=== PATIENT | female | born 1985 | race Caucasian/White ===

== ENCOUNTER 2022-07-30 11:45 | Emergency (ER) | payer OTHER, MEDICAID, SELFPAY ==
[2022-07-30 12:09] VITALS: BP 140/101; PULSE 137; RESP 24; TEMP 36.9; O2SAT 99; BMI 21.4
[2022-07-30 12:41] LABS: Appearance Urine UA CLEAR; Bilirubin Urine UA NEGATIVE (NEGATIVE); Color Urine UA YELLOW; Glucose Urine UA NEGATIVE (Negative); Ketones Urine UA NEGATIVE (NEGATIVE); Leukocyte Esterase Urine UA NEGATIVE (NEGATIVE); Nitrite Urine UA NEGATIVE (Negative); Occult Blood Urine UA NEGATIVE (Negative); Protein Urine UA NEGATIVE (Negative); Specific Gravity Urine UA <=1.005 (1.000-1.035); Urobilinogen Urine UA 0.2 E.U./dL (0.2)
[2022-07-30 12:55] LABS: Bacteria Urine None Seen; Culture Indicated Urine Cult Not Indicated; RBC Urine 0-1/HPF (0-5/HPF); WBC Urine 0-1/HPF (0-5/HPF)
[2022-07-30 14:00] VITALS: BP 138/75; PULSE 97; RESP 18; O2SAT 100
[2022-07-30 16:02] LABS: Add Manual Diff / Slide Review NO; Basophils Absolute Auto 0 /uL (0-100); Basophils Percent Auto 0.2 % (0-2); Eosinophils Absolute Auto 0 /uL (0-450); Hematocrit 36.5 % (36-46); Hemoglobin 12.4 g/dL (12.0-16.0); Lymphocytes Absolute Auto 1000 /uL (1100-4500); Lymphocytes Percent Auto 7.4 % (25-40); Mean Corpuscular Hemoglobin 31.4 PG (26-34); Mean Corpuscular Volume 92.2 fL (80-100); Monocytes Absolute Auto 400 /uL (0-900); Monocytes Percent Auto 2.7 % (3-14); Neutrophils Absolute Auto 11900 /uL (1500-7000); Neutrophils Percent Auto 89.7 % (50-75); Platelet Count 284 X10^3/uL (150-400); Red Blood Cell Count 3.96 X10^6/uL (4.0-5.2); White Blood Cell Count 13.3 X10^3/uL (4.5-11.0)
[2022-07-30 16:20] LABS: Alanine Aminotransferase 13 IU/L (<35); Albumin 3.9 g/dL (3.5-5.0); Albumin Globulin Ratio 1.3 (1.0-2.8); Alkaline Phosphatase 45 U/L (38-126); Aspartate Aminotransferase 20 IU/L (14-36); BUN Creatinine Ratio 11.8 (6-22); Bilirubin Total 0.7 mg/dL (0.2-1.3); Blood Urea Nitrogen 6 mg/dL (7-17); Calcium 8.6 mg/dL (8.4-10.2); Carbon Dioxide 22 mmol/L (22-32); Chloride 101 mmol/L (98-107); Estimated Glomerular Filt Rate > 60 mL/min (>60); Globulin 3.1 g/dL (1.7-4.1); Glucose 121 mg/dL (70-100); HEMOLYSIS < 15 (0-50); Potassium 3.8 mmol/L (3.4-5.1); Sodium 134 mmol/L (137-145)
--- NOTE | 2022-07-30 16:28 | ED_ITS ---
HPI - Female Genitourinary <Rainer Guzman PA-C - Last Filed: 07/30/22 16:42> General Chief complaint: Urogenital-Female Stated complaint: Unable to urinate, 16wks Time Seen by Provider: 07/30/22 12:40 Source: patient Mode of arrival: Family Vehicle History of Present Illness HPI Narrative: The patient has a 36-year-old female who presents to the emergency room today with complaint of inability to urinate. States she notices a 10 30 this morning. Also states yesterday she was able to urinate pathology may have felt this coming on. Also admits to having the same type of issue fluff 2 weeks ago. States that at that time she had reported to the ER with a insert a catheter and drained about 2 L of fluid. She also states since that time she had to have potassium replaced. Denies chest pain shortness of breath fever chills nausea vomiting. Urine catheter was placed and and she voided about 2 L of fluid. Admits to being 16 weeks and states she has never had this before now. Has seen her OBGYN provider regarding this condition and was under the impression that it would resolved by now. Does not live in this area and would like to see her OBGYN in the referred in the area where she lives. Denies any other concerns Related Data Allergies Allergy/AdvReac Type Severity Reaction Status Date / Time amoxicillin Allergy Rash Verified 07/30/22 12:09 cephalexin [From Keflex] Allergy Rash Verified 07/30/22 12:09 Penicillins Allergy Rash Verified 07/30/22 12:09 Review of Systems <Rainer Guzman PA-C - Last Filed: 07/30/22 16:42> Review of Systems Narrative: R.O.S.: General: No fever, chills or fatigue. Cardiovascular: No chest pain or palpitations Respiratory: No S.O.B. HEENT: No congestion, ear pain, rhinorrhea, sore throat or tinnitus Gastrointestinal: No nausea or vomiting : Inability to urinate since 09/03 this morning. Skin: No rash or associated abnormalities Musculoskeletal: No pain in muscles or joints, no limitation of range of motion, no paresthesia or numbness. ?? Neurological: Awake, alert and in not apparent distress. No Headaches, changes in vision or other related neurological concerns. Patient History <Rainer Guzman PA-C - Last Filed: 07/30/22 16:42> alcohol intake frequency: 0-2 drinks per day Substance Use Type: does not use Exam <Rainer Guzman PA-C - Last Filed: 07/30/22 16:42> Narrative Exam Narrative: Physical Exam: ? General: normal appearance, well developed, well nourished, alert, and awake. Not in acute distress. ? Head: Normocephalic, no lesions. Chest: Lungs CTAB, no rales, rhonchi or wheezes. ?? Heart: RRR, no murmurs, rubs or gallops. Eyes: PERRLA, EOM's full, conjunctivae clear. ? Neuro: Physiological, no localizing findings, CN3-12 intact. ?? Extremities: Warm, well perfused, FROM, no deformities, no edema. ?? Skin: Normal, no rashes, no lesions noted. ?? PSYCHIATRIC: The mood is good, no blunted affect. Speech is clear. Thought process is linear, thought content is appropriate. The voice is without significant inflection. Gastrointestinal: Soft; NT; ND; Pos BS with Neg. rebound tenderness. No scars or major deformities noted on Visual Inspection. Initial Vital Signs Initial Vital Signs: Vital Signs Temperature 98.5 F 07/30/22 12:09 Pulse Rate 137 H 07/30/22 12:09 Respiratory Rate 24 07/30/22 12:09 Blood Pressure 140/101 H 07/30/22 12:09 Pulse Oximetry 99 07/30/22 12:09 Oxygen Delivery Method 07/30/22 12:09 <Sylvia Lopez MD - Last Filed: 07/31/22 11:42> Initial Vital Signs Initial Vital Signs: Vital Signs Temperature 98.5 F 07/30/22 12:09 Pulse Rate 137 H 07/30/22 12:09 Respiratory Rate 24 07/30/22 12:09 Blood Pressure 140/101 H 07/30/22 12:09 Pulse Oximetry 99 07/30/22 12:09 Oxygen Delivery Method 07/30/22 12:09 Course <Rainer Guzman PA-C - Last Filed: 07/30/22 16:42> Orders Ordered: ED Orders 07/30/22 12:30 Urinalysis and Microscopic Stat 07/30/22 15:25 CBC Auto Diff [Complete Blood Count AUTO DIFF] Stat CMP [Comprehensive Metabolic Panel] Stat Lipase Stat Troponin & CK Cardiac Panel Stat Vital Signs Vital signs: Vital Signs - 8 hr 07/30/22 12:09 07/30/22 14:00 Temperature 98.5 F Pulse Rate 137 H 97 H Respiratory Rate 24 18 Blood Pressure 140/101 H 138/75 Pulse Oximetry 99 100 Oxygen Delivery Method Room Air Room Air <Sylvia Lopez MD - Last Filed: 07/31/22 11:42> Orders Ordered: ED Orders 07/30/22 12:30 Urinalysis and Microscopic Stat 07/30/22 15:25 CBC Auto Diff [Complete Blood Count AUTO DIFF] Stat CMP [Comprehensive Metabolic Panel] Stat Lipase Stat Troponin & CK Cardiac Panel Stat Vital Signs Vital signs: Vital Signs - 8 hr 07/30/22 12:09 07/30/22 14:00 Temperature 98.5 F Pulse Rate 137 H 97 H Respiratory Rate 24 18 Blood Pressure 140/101 H 138/75 Pulse Oximetry 99 100 Oxygen Delivery Method Room Air Room Air MDM - Female Genitourinary <Rainer Guzman PA-C - Last Filed: 07/30/22 16:42> Lab Data Result diagrams: 07/30/22 15:25 07/30/22 15:25 Labs: Lab Results 07/30/22 07/30/22 07/30/22 Range/Units 12:30 15:25 15:25 WBC 13.3 H (4.5-11.0) X10^3/uL RBC 3.96 L (4.0-5.2) X10^6/uL Hgb 12.4 (12.0-16.0) g/dL Hct 36.5 (36-46) % MCV 92.2 (80-100) fL MCH 31.4 (26-34) PG MCHC 34.0 (30-36) % RDW 13.0 (11.6-14.8) % Plt Count 284 (150-400) X10^3/uL Neut % (Auto) 89.7 H (50-75) % Lymph % (Auto) 7.4 L (25-40) % [facility] % (Auto) 2.7 L (3-14) % Eos % (Auto) 0.0 L (2-4) % Baso % (Auto) 0.2 (0-2) % Neut # (Auto) 68414 H (7640-4390) /uL Lymph # (Auto) 1000 L (2026-8296) /uL [facility] # (Auto) 400 (0-900) /uL Eos # (Auto) 0 (0-450) /uL Baso # (Auto) 0 (0-100) /uL Sodium (137-145) mmol/L Potassium (3.4-5.1) mmol/L Chloride (98-107) mmol/L Carbon Dioxide (22-32) mmol/L BUN (7-17) mg/dL Creatinine (0.52-1.04) mg/dL Estimated GFR (>60) mL/min BUN/Creatinine Ratio (6-22) Glucose (70-100) mg/dL Calcium (8.4-10.2) mg/dL Total Bilirubin (0.2-1.3) mg/dL AST (14-36) IU/L ALT (<35) IU/L Alkaline Phosphatase (38-126) U/L Total Creatine Kinase Cancelled CK-MB (CK-2) Cancelled CK-MB (CK-2) Rel Index Cancelled Troponin I Cancelled Total Protein (6.3-8.2) g/dL Albumin (3.5-5.0) g/dL Globulin (1.7-4.1) g/dL Albumin/Globulin Ratio (1.0-2.8) Lipase Cancelled Urine Color Yellow Urine Appearance Clear Urine pH 7.0 (4.5-8.0) Ur Specific Cherry <=1.005 (1.000-1.035) Urine Protein Negative (Negative) Urine Glucose (UA) Negative (Negative) g/dL Urine Ketones Negative (NEGATIVE) Urine Occult Blood Negative (Negative) Urine Nitrate Negative (Negative) Urine Bilirubin Negative (NEGATIVE) Urine Urobilinogen 0.2 (0.2) E.U./dL Ur Leukocyte Esterase Negative (NEGATIVE) Urine RBC 0-1/hpf (0-5/HPF) Urine WBC 0-1/hpf (0-5/HPF) Urine Bacteria None seen (None) Ur Culture Indicated? Cult not indicated 07/30/22 Range/Units 15:25 WBC (4.5-11.0) X10^3/uL RBC (4.0-5.2) X10^6/uL Hgb (12.0-16.0) g/dL Hct (36-46) % MCV (80-100) fL MCH (26-34) PG MCHC (30-36) % RDW (11.6-14.8) % Plt Count (150-400) X10^3/uL Neut % (Auto) (50-75) % Lymph % (Auto) (25-40) % [facility] % (Auto) (3-14) % Eos % (Auto) (2-4) % Baso % (Auto) (0-2) % Neut # (Auto) (0044-5884) /uL Lymph # (Auto) (7379-6930) /uL [facility] # (Auto) (0-900) /uL Eos # (Auto) (0-450) /uL Baso # (Auto) (0-100) /uL Sodium 134 L (137-145) mmol/L Potassium 3.8 (3.4-5.1) mmol/L Chloride 101 (98-107) mmol/L Carbon Dioxide 22 (22-32) mmol/L BUN 6 L (7-17) mg/dL Creatinine 0.51 L (0.52-1.04) mg/dL Estimated GFR > 60 (>60) mL/min BUN/Creatinine Ratio 11.8 (6-22) Glucose 121 H (70-100) mg/dL Calcium 8.6 (8.4-10.2) mg/dL Total Bilirubin 0.7 (0.2-1.3) mg/dL AST 20 (14-36) IU/L ALT 13 (<35) IU/L Alkaline Phosphatase 45 (38-126) U/L Total Creatine Kinase CK-MB (CK-2) CK-MB (CK-2) Rel Index Troponin I Total Protein 7.0 (6.3-8.2) g/dL Albumin 3.9 (3.5-5.0) g/dL Globulin 3.1 (1.7-4.1) g/dL Albumin/Globulin Ratio 1.3 (1.0-2.8) Lipase Urine Color Urine Appearance Urine pH (4.5-8.0) Ur Specific Cherry (1.000-1.035) Urine Protein (Negative) Urine Glucose (UA) (Negative) g/dL Urine Ketones (NEGATIVE) Urine Occult Blood (Negative) Urine Nitrate (Negative) Urine Bilirubin (NEGATIVE) Urine Urobilinogen (0.2) E.U./dL Ur Leukocyte Esterase (NEGATIVE) Urine RBC (0-5/HPF) Urine WBC (0-5/HPF) Urine Bacteria (None) Ur Culture Indicated? MDM Narrative Medical decision making narrative: Patient is a 36-year-old female who presents to the emergency room today with complaint of not being able to urinate since 10 30 this morning. Admits she has had this sensation for which she needed to report to the emergency room by 2 weeks ago had a catheter placed and urine voided. Catheter was placed today and patient voided about a L of fluid. Labs were also negative for any urgent or emergent concerns. Catheter is to remain at patient follows up with her PCP or OBGYN or urologist regarding inability urinate. Patient is to be discharged a dvised to follow-up with her OBGYN and/or primary care providers with non emergent concerns. <Sylvia Lopez MD - Last Filed: 07/31/22 11:42> Lab Data Labs: Lab Results 07/30/22 07/30/22 07/30/22 Range/Units 12:30 15:25 15:25 WBC 13.3 H (4.5-11.0) X10^3/uL RBC 3.96 L (4.0-5.2) X10^6/uL Hgb 12.4 (12.0-16.0) g/dL Hct 36.5 (36-46) % MCV 92.2 (80-100) fL MCH 31.4 (26-34) PG MCHC 34.0 (30-36) % RDW 13.0 (11.6-14.8) % Plt Count 284 (150-400) X10^3/uL Neut % (Auto) 89.7 H (50-75) % Lymph % (Auto) 7.4 L (25-40) % [facility] % (Auto) 2.7 L (3-14) % Eos % (Auto) 0.0 L (2-4) % Baso % (Auto) 0.2 (0-2) % Neut # (Auto) 50988 H (8798-7972) /uL Lymph # (Auto) 1000 L (7908-8276) /uL [facility] # (Auto) 400 (0-900) /uL Eos # (Auto) 0 (0-450) /uL Baso # (Auto) 0 (0-100) /uL Sodium (137-145) mmol/L Potassium (3.4-5.1) mmol/L Chloride (98-107) mmol/L Carbon Dioxide (22-32) mmol/L BUN (7-17) mg/dL Creatinine (0.52-1.04) mg/dL Estimated GFR (>60) mL/min BUN/Creatinine Ratio (6-22) Glucose (70-100) mg/dL Calcium (8.4-10.2) mg/dL Total Bilirubin (0.2-1.3) mg/dL AST (14-36) IU/L ALT (<35) IU/L Alkaline Phosphatase (38-126) U/L Total Creatine Kinase Cancelled CK-MB (CK-2) Cancelled CK-MB (CK-2) Rel Index Cancelled Troponin I Cancelled Total Protein (6.3-8.2) g/dL Albumin (3.5-5.0) g/dL Globulin (1.7-4.1) g/dL Albumin/Globulin Ratio (1.0-2.8) Lipase Cancelled Urine Color Yellow Urine Appearance Clear Urine pH 7.0 (4.5-8.0) Ur Specific Cherry <=1.005 (1.000-1.035) Urine Protein Negative (Negative) Urine Glucose (UA) Negative (Negative) g/dL Urine Ketones Negative (NEGATIVE) Urine Occult Blood Negative (Negative) Urine Nitrate Negative (Negative) Urine Bilirubin Negative (NEGATIVE) Urine Urobilinogen 0.2 (0.2) E.U./dL Ur Leukocyte Esterase Negative (NEGATIVE) Urine RBC 0-1/hpf (0-5/HPF) Urine WBC 0-1/hpf (0-5/HPF) Urine Bacteria None seen (None) Ur Culture Indicated? Cult not indicated 07/30/22 Range/Units 15:25 WBC (4.5-11.0) X10^3/uL RBC (4.0-5.2) X10^6/uL Hgb (12.0-16.0) g/dL Hct (36-46) % MCV (80-100) fL MCH (26-34) PG MCHC (30-36) % RDW (11.6-14.8) % Plt Count (150-400) X10^3/uL Neut % (Auto) (50-75) % Lymph % (Auto) (25-40) % [facility] % (Auto) (3-14) % Eos % (Auto) (2-4) % Baso % (Auto) (0-2) % Neut # (Auto) (0305-1439) /uL Lymph # (Auto) (7983-6552) /uL [facility] # (Auto) (0-900) /uL Eos # (Auto) (0-450) /uL Baso # (Auto) (0-100) /uL Sodium 134 L (137-145) mmol/L Potassium 3.8 (3.4-5.1) mmol/L Chloride 101 (98-107) mmol/L Carbon Dioxide 22 (22-32) mmol/L BUN 6 L (7-17) mg/dL Creatinine 0.51 L (0.52-1.04) mg/dL Estimated GFR > 60 (>60) mL/min BUN/Creatinine Ratio 11.8 (6-22) Glucose 121 H (70-100) mg/dL Calcium 8.6 (8.4-10.2) mg/dL Total Bilirubin 0.7 (0.2-1.3) mg/dL AST 20 (14-36) IU/L ALT 13 (<35) IU/L Alkaline Phosphatase 45 (38-126) U/L Total Creatine Kinase CK-MB (CK-2) CK-MB (CK-2) Rel Index Troponin I Total Protein 7.0 (6.3-8.2) g/dL Albumin 3.9 (3.5-5.0) g/dL Globulin 3.1 (1.7-4.1) g/dL Albumin/Globulin Ratio 1.3 (1.0-2.8) Lipase Urine Color Urine Appearance Urine pH (4.5-8.0) Ur Specific Cherry (1.000-1.035) Urine Protein (Negative) Urine Glucose (UA) (Negative) g/dL Urine Ketones (NEGATIVE) Urine Occult Blood (Negative) Urine Nitrate (Negative) Urine Bilirubin (NEGATIVE) Urine Urobilinogen (0.2) E.U./dL Ur Leukocyte Esterase (NEGATIVE) Urine RBC (0-5/HPF) Urine WBC (0-5/HPF) Urine Bacteria (None) Ur Culture Indicated? Discharge Plan Departure Patient Disposition: Home Clinical Impression: Urinary (tract) obstruction Instructions: DI for Urinary Retention in Women Activity Restrictions/Additional Instructions: *You have been diagnosed with urinary tract obstruction. I suggest you leave t he catheter in place and follow-up with your OBGYN and primary care provider regarding your urinary obstruction. Suggest you return to the emergency room if any emergent concerns arise. [ ] *What to do: *Please continue to take your regular medications as directed. [ ] New medication prescriptions sent to your pharmacy: [ ] [ ] New medication written as a paper prescription [x] No new medications given *Please follow up with your primary care provider in 2-3 days, call for an appointment. Let them know you were seen in the Emergency Department and that we ask that you be seen in follow up. We will electronically transmit a record of today's note if your PCP is in our system *If you do not have a primary care provider please contact the [facility] Resource line at [phone]. They will ask some questions about your medical history and help get you set up with a doctor in the community. *Return to Emergency Department if you should have any new, worsening or concerning symptoms, such as [fever greater than 101 F, shaking chills, worsening pain, persistent vomiting or other bothersome symptoms] Visit Report Forms: Patient Portal/API <Sylvia Lopez MD - Last Filed: 07/31/22 11:42> Cosign ED Attending Kurtature Attestation: I was immediately available in the department for consultation throughout this patient's visit. I agree with documentation as above. Sylvia Lopez MD
== END 2022-07-30 17:05 | disposition home or self-care (01) ==
PROVIDERS: Emergency Medicine; Emergency Provider Physician Assistant
DX: N13.9 Obstructive and reflux uropathy, unspecified (principal)
CPT/HCPCS: 36415; 51702; 51798; 80053; 81001; 85025; 99283